=== PATIENT | female | born 1980 | race Caucasian/White ===

== ENCOUNTER 2017-09-04 08:53 | Outpatient (CLI) ==
--- NOTE | 2017-09-04 11:48 | US ---
EXAM: THYROID ULTRASOUND HISTORY: Hypothyroidism FINDINGS: Ultrasound thyroid. Real time miles-scale ultrasound and color Doppler imaging. COMPARISON: 11/07/2013 The right thyroid lobe measures 6.4 x 1.6 x 1.3 cm. The isthmus measures 8.4 cm. The left thyroid lobe measures 4.8 x 1.8 x 1.7 cm. RIGHT LOBE: Multiple nodules within the lobe estimated at five in total all of which measure about 1 cm. These n odules have similar sonographic appearance with mostly solid isoechoic nature with a few having parti al cystic character. No definite internal atypia. ISTHMUS: No nodules identified. LEFT LOBE: Two nodules are identified within the left lobe . These both measure about 1.2 cm. These nodules ar e mostly solid and isoechoic with some focal hypoechoic components. GENERAL: The gland is diffusely heterogeneous and mildly hyperemic. When compared to the prior exam and allowing for differences in scanning in measuring technique, the overall gland size does not sidney ear noticeably changed. The multiple nodules were also demonstrated previously with some larger in s iz, especially on the right. IMPRESSION: Findings consistent with multinodular goiter. Some the nodules may be slightly larger [id number] although overall similar in appearance to that previously seen.
== END 2017-09-04 08:54 | disposition home or self-care (01) ==
LOC: RAD 08:53
PROVIDERS: ATTEND Nurse Practitioner
DX: E03.9 Hypothyroidism, unspecified (principal)